=== PATIENT | female | born 2005 | race Caucasian/White ===

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

== ENCOUNTER 2025-01-08 17:59 | Outpatient (REF) | payer OTHER, SELFPAY ==
[2025-01-10 12:17] LABS: Chlamydia Result Negative (Negative); GC Result Negative (Negative)
== END 2025-01-08 18:00 | disposition home or self-care (01) ==
LOC: LBN 17:59
PROVIDERS: PCP Nurse Practitioner Family; Visit Provider Family Medicine
DX: Z11.3 Encounter for screening for infections with a predominantly sexual mode of transmission (principal)
CPT/HCPCS: 87491; 87591

== ENCOUNTER 2025-04-19 14:14 | Emergency (ER) | payer OTHER, SELFPAY ==
[2025-04-19 14:17] VITALS: BP 105/79; PULSE 109; RESP 16; O2SAT 97
--- NOTE | 2025-04-19 14:31 | ED.GENADUL_ITS ---
Discharge Plan Disposition Patient Disposition: Home Condition: Stable Discharge Details Clinical Impression: Nausea vomiting and diarrhea Primary Care Provider: Unknown,Unknown ED Provider: Jj Christensen Home Meds and New Rx's Prescriptions: New prochlorperazine maleate [Compazine] 10 mg tablet 10 mg PO TID PRN (Reason: nausea and vomiting) Qty: 30 0RF Continued fluoxetine 40 mg capsule See Rx Instructions .ROUTE .COMPLEX Qty: 30 1RF Dose Instruction: TAKE ONE CAPSULE BY MOUTH EVERY DAY IN THE MORNING Rx Instructions: TAKE ONE CAPSULE BY MOUTH EVERY DAY IN THE MORNING fluoxetine [Prozac] 10 mg capsule 10 mg PO DAILY Qty: 30 1RF ondansetron 8 mg tablet,disintegrating 8 mg PO Q8H PRN (Reason: nausea and vomiting) Qty: 20 0RF L norgest/e.estradiol-e.estrad [Daysee] 0.15 mg-30 mcg (84)/10 mcg (7) tablets,dose pack,3 month See Rx Instructions .ROUTE .COMPLEX Qty: 91 0RF Dose Instruction: TAKE ONE TABLET BY MOUTH EVERY DAY Rx Instructions: TAKE ONE TABLET BY MOUTH EVERY DAY Discharge Instructions Additional Instructions: Make sure you are drinking small frequent sips of liquids to stay hydrated. If not improving this week follow-up with either your primary care provider or express care. If you feel significantly more ill or severe worsening pain return to emergency department for evaluation. HPI General Mode of arrival: ambulatory . Date/Time Provider Initiated Documentation: 04/19/25 14:17 . Limitations to Documentation: no limitations . Information obtained by: patient . History of Present Illness 19 year old F presents to the emergency department with the chief complaint of n/v/d, described as moderate, Patient started experiencing this day(s) (2) and it has been constant. No relieving factors improve symptom(s), No exacerbating factors reported . Patient notes fever/chills. Related Data Home Medications ?Medication ?Instructions ?Recorded ?Confirmed L norgest/E estradiol-E estrad See Rx Instructions .[place] 02/27/25 04/19/25 0.15 mg-30 mcg (84)/10 mcg(7) .COMPLEX #91 tabs tabs,3mos (Daysee) fluoxetine 10 mg capsule (Prozac) 10 mg PO DAILY #30 c aps 04/04/25 04/19/25 fluoxetine 40 mg capsule See Rx Instructions .Route 0 04/04/25 04/19/25 .COMPLEX #30 caps ondansetron 8 mg disintegrating 8 mg PO Q8H PRN nausea and 04/19/25 04/19/25 tablet vomiting #20 tabs prochlorperazine maleate 10 mg 10 mg PO TID PRN nausea and 04/19/25 tablet (Compazine) vomiting #30 tabs Previous Rx's ?Medication ?Instructions ?Recorded L norgest/E estradiol-E estrad See Rx Instructions .[place] 02/27/25 0.15 mg-30 mcg (84)/10 mcg(7) .COMPLEX #91 tabs tabs,3mos (Daysee) fluoxetine 10 mg capsule (Prozac) 10 mg PO DAILY #30 c aps 04/04/25 fluoxetine 40 mg capsule See Rx Instructions .Route 0 04/04/25 .COMPLEX #30 caps ondansetron 8 mg disintegrating 8 mg PO Q8H PRN nausea and 04/19/25 tablet vomiting #20 tabs prochlorperazine maleate 10 mg 10 mg PO TID PRN nausea and 04/19/25 tablet (Compazine) vomiting #30 tabs Allergies Allergy/AdvReac Type Severity Reaction Status Date / Time No Known Allergies Allergy Verified 04/19/25 14:23 General Stated Complaint: Nausea/Vomit/Diar DEBI: 3 Review of Systems All systems reviewed & are unremarkable except as noted in HPI and below Constitutional Constitutional: Denies chills, Denies fever(s) and Denies weakness Cardiovascular Cardiovascular: Denies chest pain and Denies dyspnea Respiratory Respiratory: Denies cough and Denies dyspnea Gastrointestinal Gastrointestinal: Reports abdominal pain, Reports diarrhea, Reports nausea and Reports vomiting Neurologic Neurologic: Denies weakness Exam Const General: no acute distress Orientation: alert [facility] Head: normal to inspection Ears: external ears normal General nose exam: external nose normal Mouth: moist mucous membranes Eyes General: appearance normal, both eyes and all related structures Neck Neck: normal visual inspection Resp Effort & Inspection: normal respiratory effort and able to speak in complete sentences Cardio Rate: regular rate GI Palpation: soft, not firm, no guarding and tender Skin General skin exam: no rashes or lesions noted Neuro General: patient alert and patient oriented x3 Extrem General: normal to inspection Psych Mental Status: mental status grossly normal Course Vital Signs Vital signs: Vital Signs Pulse 109 H 04/19/25 14:17 Respiratory Rate 16 04/19/25 14:17 Blood Pressure 105/79 04/19/25 14:17 Pulse Oximetry 97 04/19/25 14:17 Pulse 109 H 04/19/25 14:17 Respiratory Rate 16 04/19/25 14:17 Blood Pressure 105/79 04/19/25 14:17 Blood Pressure Position Sitting 04/19/25 14:17 Pulse Oximetry 97 04/19/25 14:17 Oxygen Delivery Method Room Air 04/19/25 14:17 Oxygen Flow Rate 0 04/19/25 14:17 Medical Decision Making 19-year-old female comes in with 2 days of nausea vomiting and diarrhea. She was seen at [facility] earlier and was given Zofran and also had urine that was negative states that she tried taking a Zofran and then immediately started throwing up again so came here for evaluation. She states the first day she did have fevers but none since. She states that she has cramping throughout her abdomen. She is stable on arrival with a soft abdomen. She has no peritoneal signs. She is tender with deep palpation in all quadrants without guarding. She has a negative Larson sign. I suspect gastroenteritis but will check CBC CMP and lipase and also treat her symptoms with IV fluids and Compazine and reassess. Patient with a mild leukocytosis of 14 which could be from a gastroenteritis, liver function test and lipase were unremarkable. She has asymptomatic after fluids and Compazine and has no abdominal tenderness on repeat exam. Do not feel emergent imaging is indicated as it is likely a viral gastroenteritis. 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 Father Hearing loss Hx of chronic ome Mental disorder depression/anxiety Multiple sclerosis Sister No problems noted. Brother No problems noted. grandparent Essential hypertension Hyperlipidemia Mental disorder depression/anxiety Social History Smoking/Tobacco Use Status: Never Smoking risk assessment performed?: Yes Alcohol Intake: never Drug use: Never Substance use type: does not use Communication Needs: None Education Level: high school Details: - [employer] 22-23 Pets and animals: Yes (1 dog) Pets and animals: dog(s), farm animals and other Details: CHICKENS, leopard gecko Seatbelt use: always Helmet use: Yes Fire extinguisher in home: Yes Carbon monox detector in home: Yes Do you feel safe at home: Yes Do you feel safe in your relationship?: Yes Female Reproductive History Menstrual Age of Menarche: 13 control method: pills History History 0 Para Hx # Term Pregnancies Multiple births Hx # Pregnancies Ectopic pregnancies AB induced Hx Number of Living Children AB spontaneous
[2025-04-19] MEDS: Normal Saline 1,000 ML 1000 ML IV (14:43)
[2025-04-19] MEDS: Prochlorperazine 10 MG/2 ML VIAL IVP (14:44)
[2025-04-19 14:51] VITALS: O2SAT 98
[2025-04-19 15:10] LABS: Abs Immature Grans 0.07 10^3/uL (0.0-0.06); HCT 39.5 % (36.0-46.0); HGB 13.2 g/dL (11.2-15.7); Immature Grans % 0.5 %; MCH 28.1 pg (27.0-33.0); MCHC 33.4 % (32.0-36.0); MCV 84 fL (80-95); MPV 10.5 fL (8.0-11.0); Platelet Count 269 10^3/uL (130-400); RBC 4.69 10^6/uL (3.93-5.22); RDW 12.9 % (11.7-14.6); RDW-SD 39.7 fL; WBC 14.77 10^3/uL (4.4-10.8)
[2025-04-19 15:21] VITALS: RESP 16; O2SAT 98
[2025-04-19 15:39] LABS: ALT 53 U/L (14-59); AST 20 U/L (15-37); Albumin 3.8 g/dL (3.4-5.0); Alkaline Phosphatase 74 U/L (46-116); Anion Gap 10.6 mmol/L (3-11); BUN 8 mg/dL (7-18); Bilirubin, Total 0.6 mg/dL (0.2-1.0); CO2 27.4 mmol/L (21.0-32.0); Calcium 9.6 mg/dL (8.5-10.1); Chloride 102 mmol/L (98-107); Estimated GFR 94.44 (mL/min/1.73m2); Glucose 128 mg/dL (74-106); Lipase 24 U/L (<78); Magnesium 2.2 mg/dL (1.8-2.4); Potassium 3.2 mmol/L (3.5-5.1); Sodium 140 mmol/L (136-145); Total Protein 8.3 g/dL (6.4-8.2)
[2025-04-19 15:54] VITALS: PULSE 89; RESP 16; O2SAT 98
[2025-04-19 16:43] LABS: Glucose Negative (Negative)
[2025-04-19 16:52] LABS: C & S Indicated? No; RBC 20-50 HPF (0-2); WBC Negative HPF (0-5)
== END 2025-04-19 15:57 | disposition home or self-care (01) ==
PROVIDERS: Physician Assistant; Emergency Provider Emergency Medicine
DX: R11.2 Nausea with vomiting, unspecified (principal); R19.7 Diarrhea, unspecified
CPT/HCPCS: 99284; 99283; 96374; 80053; 83690; 96361; 81003; 81015; 83735; 85025; J0780

== ENCOUNTER 2025-04-24 10:46 | Outpatient (CLI) | payer OTHER, SELFPAY ==
--- NOTE | 2025-04-24 10:48 | DI.RAD_ITS ---
Exam(s) XR CHEST 2V PA LATERAL EXAM: XR CHEST 2V PA LATERAL CLINICAL HISTORY: 19 yo F w/ fever x 1wk, dim RLB R50.9. TECHNIQUE: 2D digital imaging was performed. COMPARISON: No exams were available for comparison FINDINGS: 2 views: Heart size is normal. The mediastinum is not widened. Lungs are clear. No infiltrates nor pleural effusions. IMPRESSION: No acute pulmonary findings. DATA REPOSITORY: RADIATION DOSE DELIVERED:
== END 2025-04-24 11:06 ==
LOC: DI 10:46
PROVIDERS: Visit Provider Pediatrics
DX: R50.9 Fever, unspecified (principal)
CPT/HCPCS: 71046

== ENCOUNTER 2025-04-24 10:53 | Outpatient (CLI) | payer OTHER, SELFPAY ==
[2025-04-24 11:09] LABS: Abs Immature Grans 0.11 10^3/uL (0.0-0.06); HCT 37.6 % (36.0-46.0); HGB 12.5 g/dL (11.2-15.7); Immature Grans % 1.0 %; MCH 28.5 pg (27.0-33.0); MCHC 33.2 % (32.0-36.0); MCV 86 fL (80-95); MPV 10.0 fL (8.0-11.0); Platelet Count 406 10^3/uL (130-400); RBC 4.38 10^6/uL (3.93-5.22); RDW 13.2 % (11.7-14.6); RDW-SD 41.3 fL; WBC 11.38 10^3/uL (4.4-10.8)
[2025-04-24 11:15] LABS: Mono Screening Negative (Negative)
[2025-04-24 12:01] LABS: ALT 38 U/L (14-59); AST 17 U/L (15-37); Albumin 3.3 g/dL (3.4-5.0); Alkaline Phosphatase 63 U/L (46-116); Amylase 61 U/L (25-115); Anion Gap 10.2 mmol/L (3-11); BUN 7 mg/dL (7-18); Bilirubin, Total 0.4 mg/dL (0.2-1.0); CO2 26.8 mmol/L (21.0-32.0); Calcium 10.2 mg/dL (8.5-10.1); Chloride 102 mmol/L (98-107); Estimated GFR 108.78 (mL/min/1.73m2); Glucose 108 mg/dL (74-106); Lipase 71 U/L (<78); Potassium 3.8 mmol/L (3.5-5.1); Sodium 139 mmol/L (136-145); Total Protein 8.2 g/dL (6.4-8.2)
[2025-04-24 12:03] LABS: Glucose Negative (Negative)
== END 2025-04-24 10:54 | disposition home or self-care (01) ==
LOC: LBO 10:53
PROVIDERS: Physician Assistant; Visit Provider Pediatrics
DX: R50.9 Fever, unspecified (principal); R10.9 Unspecified abdominal pain; R11.10 Vomiting, unspecified; R30.0 Dysuria
CPT/HCPCS: 36415; 80053; 83690; 85027; 87637; 81003; 82150; 85025; 86308

== ENCOUNTER 2025-04-24 17:25 | Outpatient (REF) | payer OTHER, SELFPAY ==
[2025-04-24 17:53] LABS: COVID-19 PCR Negative (Negative); RSV PCR Negative (Negative)
== END 2025-04-24 17:26 | disposition home or self-care (01) ==
LOC: LBN 17:25
PROVIDERS: Visit Provider Pediatrics
DX: R50.9 Fever, unspecified (principal); R10.9 Unspecified abdominal pain; R10.11 Right upper quadrant pain
CPT/HCPCS: 87637